=== PATIENT | female | born 1975 | race Hispanic/Latino ===

== ENCOUNTER → 2018-03-09 | Outpatient (CLI) | payer OTHER | END | disposition home or self-care (01) | LOC: RAH 13:40 | PROVIDERS: ATTEND Emergency Medicine Emergency Medical Services | DX: R92.2 Inconclusive mammogram (principal); J45.909 Unspecified asthma, uncomplicated; E78.5 Hyperlipidemia, unspecified | CPT/HCPCS: 76641; 77065 ==

== ENCOUNTER → 2018-08-30 | Outpatient (CLI) | payer OTHER ==
[~2018-08-30] MED LIST: ALBUTEROL SULFATE 0.083% 2.5 MG/3 ML INH IH ONE
== END | disposition home or self-care (01) ==
LOC: RESP 08:52
PROVIDERS: ATTEND Orthopaedic Surgery
DX: J98.8 Other specified respiratory disorders (principal); Z77.098 Contact with and (suspected) exposure to other hazardous, chiefly nonmedicinal, chemicals; Z57.2 Occupational exposure to dust
CPT/HCPCS: 71046; 94060